=== PATIENT | male | born 1955 | race Caucasian/White ===

== ENCOUNTER 2017-11-27 13:00 | Emergency (ER) | payer OTHER ==
[~2017-11-27] VITALS: Ht 185.4 cm; Wt 122.5 kg
[~2017-11-27 13:00] MED LIST: LISINOPRIL-HCT1 EAC1 PO; LORAZEPAM1 MG PO; PAROXETINE HCL20 MG PO
[2017-11-27 15:22] LABS: BASOPHILS % 0.4 % (0.0-1.0); EOSINOPHILS # (AUTO) 0.1 (0.0-0.4); EOSINOPHILS % 0.7 % (0.0-6.0); HEMATOCRIT 42.5 % (38.2-49.6); HEMOGLOBIN 14.5 g/dL (14.0-18.0); LYMPHOCYTES # (AUTO) 1.2 (1.0-3.2); LYMPHOCYTES % 16.3 % (18.0-39.1); MEAN CORPUSCULAR HEMOGLOBIN 31.5 pg (28-32); MEAN CORPUSCULAR HGB CONC 34.1 g/dL (31-35); MEAN CORPUSCULAR VOLUME 92.4 fL (81-99); MONOCYTES # (AUTO) 0.6 (0.2-0.8); MONOCYTES % 8.1 % (4.4-11.3); NEUTROPHILS # (AUTO) 5.7 (2.1-6.9); NEUTROPHILS % 74.2 % (38.7-80.0); PLATELET COUNT 195 x10e3/uL (140-360); RED CELL DISTRIBUTION WIDTH 13.8 % (11.7-14.4)
[2017-11-27 15:32] LABS: ALANINE AMINOTRANSFERASE 29 IU/L (0-55); ALBUMIN 3.9 g/dL (3.5-5.0); ALBUMIN/GLOBULIN RATIO 1.1 (0.8-2.0); ALKALINE PHOSPHATASE 93 IU/L (40-150); ANION GAP 11.5 mmol/L (8-16); BLOOD UREA NITROGEN 13 mg/dL (7-26); BUN/CREATININE RATIO 13 (6-25); CALCIUM 9.7 mg/dL (8.4-10.2); CARBON DIOXIDE 27 mmol/L (22-29); CHLORIDE 103 mmol/L (98-107); CREATINE KINASE 117 IU/L (30-200); CREATININE, SERUM 0.98 mg/dL (0.72-1.25); EST GLOMERULAR FILTRATION RATE > 60 ML/MIN (60-); GLUCOSE 98 mg/dL (74-118); POTASSIUM 3.5 mmol/L (3.5-5.1); SODIUM 138 mmol/L (136-145)
[2017-11-27 16:07] LABS: INR 1.03; PROTHROMBIN TIME 12.7 seconds (11.9-14.5)
[2017-11-27 16:08] LABS: PARTIAL THROMBOPLASTIN TIME 30.2 seconds (23.8-35.5)
[2017-11-27] MEDS ORDERED: ACETAMINOPHEN 325 MG TAB PO ONE ×2 (16:30)
--- NOTE | 2017-11-27 16:43 | Diagnostic Imaging Report ---
PROCEDURE: A single AP view of the chest. COMPARISON: None. INDICATIONS: ELEVATED BLOOD PRESSURE FINDINGS: See impression. IMPRESSION: 1. enlarged cardiac silhouette. Pulmonary vasculature is normal. 2. Lungs are grossly clear, without consolidation, effusion or pulmonary edema. 3. No acute bony abnormalities. Absence of the distal portion of the right clavicle, which may reflect postsurgical changes Russ Lara M.D. Dictated by: Russ Lara M.D. on 11/27/2017 at 16:44 Electronically approved by: Russ Lara M.D. on 11/27/2017 at 16:44
[2017-11-27 17:50] VITALS: BP 158/85
== END 2017-11-27 18:00 | disposition home or self-care (01) ==
LOC: ER 13:00
DX: I10 Essential (primary) hypertension (principal); R51 Headache
CPT/HCPCS: 36415; 71045; 80053; 82550; 82553; 84484; 85025; 85610; 85730; 93005; 99284